=== PATIENT | female | born 1950 | race Two or more races ===

== ENCOUNTER 2018-10-09 10:05 | Outpatient (CLI) | payer OTHER | END 2018-10-09 10:16 | disposition home or self-care (01) | LOC: TOM 10:05 | DX: G43.809 Other migraine, not intractable, without status migrainosus (principal); I10 Essential (primary) hypertension; R42 Dizziness and giddiness ==

== ENCOUNTER 2019-04-27 08:55 | Outpatient (CLI) | payer OTHER | END 2019-04-27 08:59 | disposition home or self-care (01) | LOC: SONOGRAMA 08:55 | DX: E04.1 Nontoxic single thyroid nodule (principal) ==